=== PATIENT | male | born 1995 | race African-American/Black ===

== ENCOUNTER 2024-03-01 13:22 | Emergency (ER) | payer MEDICAID, SELFPAY ==
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
[2024-03-01 13:40] VITALS: BP 146/71; PULSE 93; RESP 19; TEMP 37; O2SAT 97
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
[2024-03-01] MEDS: Acetaminophen 325 MG TABLET 650 MG PO (13:56)
[2024-03-01 14:32] VITALS: BP 146/71; PULSE 93; RESP 19; TEMP 37; O2SAT 97; BMI 31.2
[2024-03-01] MEDS: Ibuprofen 800 MG TABLET PO (15:23)
[2024-03-01] MEDS: Nicotine Polacrilex 2 MG GUM BUCCAL ×2 (15:24→17:55)
--- NOTE | 2024-03-01 16:55 | PC.NURSE ---
nurse to nurse given to COLE Vasques at [facility], advised XR is neg for fx, plan is for DC back to [facility]
[2024-03-01 18:14] VITALS: BP 146/71; PULSE 93; RESP 19; TEMP 37; O2SAT 97
== END 2024-03-01 18:14 | disposition home or self-care (01) ==
PROVIDERS: Emergency Provider Emergency Medicine
DX: S63.91XA Sprain of unspecified part of right wrist and hand, initial encounter (principal); W22.09XA Striking against other stationary object, initial encounter; Y93.9 Activity, unspecified; Y92.9 Unspecified place or not applicable; Y99.9 Unspecified external cause status
CPT/HCPCS: 73110; 73130; 99283